=== PATIENT | male | born 1965 | race African-American/Black ===

== ENCOUNTER 2021-11-14 21:00 | Emergency (ER) | payer MEDICAID, OTHER ==
[~2021-11-14] VITALS: Ht 185.4 cm; Wt 163.7 kg
--- NOTE | 2021-11-14 21:29 | NUR ---
pt in room 5a, c/o low back pain. pt is alert oriented.
--- NOTE | 2021-11-14 22:02 | NUR ---
Dr. Enamorado at bedside for MSE.
[2021-11-14] MEDS ORDERED: HYDROMORPHONE 1 MG/1 ML DISP.SYRIN IM ONE (22:15)
[2021-11-14] MEDS ORDERED: KETOROLAC TROMETHAMINE 60 MG INJ IM ONE ×2 (22:28→22:30)
[2021-11-14 22:30] LABS: HEMATOCRIT 46.8 % (36.7-47.1); MEAN CORPUSCULAR VOLUME 89.6 fL (73.0-96.2); PLATELET COUNT (AUTO) 220 K/uL (152-348)
--- NOTE | 2021-11-14 22:35 | NUR ---
pt refused dilaudid, Dr. Enamorado made aware.
[2021-11-14 23:40] LABS: BILIRUBIN,DIRECT 0.1 mg/dL (0.0-0.2); BILIRUBIN,TOTAL 0.5 mg/dL (0.2-1.0); CREATININE 1.2 mg/dL (0.6-1.3); POTASSIUM 4.3 mmol/L (3.5-5.1); TOTAL PROTEIN, SERUM 7.8 g/dL (6.4-8.2)
[2021-11-15 00:09] LABS: *BILIRUBIN,URIN NEGATIVE (NEGATIVE); *BLOOD, URINE NEGATIVE (NEGATIVE); *CLARITY,URINE CLEAR (CLEAR); *COLOR,URINE YELLOW (YELLOW); *KETONES,URINE NEGATIVE (NEGATIVE); LEUKOCYTE ESTERASE ,URINE NEGATIVE (NEGATIVE); NITRITE, URINE NEGATIVE (NEGATIVE); UGLUCOSE NEGATIVE (NEGATIVE)
[2021-11-15] MEDS ORDERED: HYDROMORPHONE 1 MG/1 ML DISP.SYRIN ONE (00:45)
[2021-11-15] MEDS ORDERED: HYDROMORPHONE 1 MG/1 ML DISP.SYRIN IM ONE (00:45)
[2021-11-15 02:41] VITALS: BP 130/75
--- NOTE | 2021-11-15 02:41 | NUR ---
Patient discharged to home in stable condition. Written and verbal after care instructions given. Patient verbalizes understanding of instructions. Stressed follow up or return to ER for worsening s/s.
== END 2021-11-15 02:42 | disposition home or self-care (01) ==
LOC: ER 21:07
DX: G89.29 Other chronic pain (principal); M54.40 Lumbago with sciatica, unspecified side
CPT/HCPCS: 36415; 80048; 80076; 81003; 85025; 96372 ×2; 99284; J1170; J1885